=== PATIENT | male | born 1945 | race Caucasian/White ===

== ENCOUNTER → 2017-08-26 | Outpatient (CLI) | payer MEDICARE, BC ==
[2015-01-04 08:39] VITALS: BP 137/76
[~2017-08-26] MED LIST: AMOX1TAB11 PO; ASPI325T8 PO; METR500T8 PO; MULT-246 PO; OXYC1TAB9 PO; SULF1TAB24 PO
--- NOTE | 2017-08-26 11:33 | RAD ---
Renal ultrasound 08/26/2017 Indication: Abnormal renal function Comparison study: None Discussion: Ultrasound evaluation of the kidneys was performed. Static images were submitted to PACS. The right kidney is normal in size measuring 10 cm longitudinally. A simple appearing 3.1 cm cyst is seen in the superior pole the right kidney. The kidneys otherwise unremarkable in appearance. The left kidney is normal in appearance measuring 10.5 cm in length. No focal renal lesion is seen on the left. No hydronephrosis, nephrolithiasis, or obstructive uropathy is identified involving either kidney. Limited visualization of the bladder is unremarkable. Bilateral ureteral jets are present. Impression: 1. 3.1 cm simple appearing cyst within the superior pole the right kidney. 2. Otherwise normal sonographic appearance of the kidneys
== END | disposition home or self-care (01) ==
LOC: US 08:33
PROVIDERS: ATTEND Family Medicine
DX: R94.4 Abnormal results of kidney function studies (principal); N28.1 Cyst of kidney, acquired; F17.210 Nicotine dependence, cigarettes, uncomplicated
CPT/HCPCS: 76770